=== PATIENT | female | born 1960 | race African-American/Black ===

== ENCOUNTER 2016-11-23 06:55 | Emergency (ER) | payer BC, MEDICAID ==
[2016-11-23 08:24] LABS: HEMATOCRIT 42.3 % (36.0-47.0); HEMOGLOBIN 14.3 g/dL (12.0-15.5); HGB HCT DIFFERENCE 0.6; MEAN CORPUSCULAR HGB CONC 33.7 g/dL (32.0-36.0); MEAN CORPUSCULAR VOLUME 95 fl (80-97); RED BLOOD COUNT 4.46 10^6/uL (3.72-5.28); RED CELL DISTRIBUTION WIDTH 17.6 % (11.5-14.0)
[2016-11-23 08:25] LABS: PROTHROMBIN TIME 15.1 SEC (11.4-15.4)
[2016-11-23 08:55] LABS: BAND NEUTROPHILS % (MANUAL) 3 % (3-5); BASOPHILS % (MANUAL) 0 % (0-2); EOSINOPHILS % (MANUAL) 0 % (0-6); LYMPHOCYTES % (MANUAL) 9 % (13-45); TOTAL CELLS COUNTED 100
[2016-11-23 08:58] LABS: ANISOCYTOSIS 1+
--- NOTE | 2016-11-23 09:23 | RADIOLOGY REPORT (SQ) ---
EXAM DESCRIPTION: CT HEAD WITHOUT COMPLETED DATE/TIME: 11/23/2016 9:01 am REASON FOR STUDY: altered altered level of consciousness COMPARISON: MRI brain 07/02/2015, CT brain 07/02/2015, 04/21/2014 TECHNIQUE: Axial images acquired through the brain without intravenous contrast. Images reviewed wi th bone, brain and subdural windows. Images stored on PACS. All CT scanners at this facility use dose modulation, iterative reconstruction, and/or weight based d osing when appropriate to reduce radiation dose to as low as reasonably achievable (ALARA). [facility]: Dose Right [facility]: CareDose [facility]: Dose Right [facility]: Teradose 4D [facility]: [employer] RADIATION DOSE: Up-to-date CT equipment and radiation dose reduction techniques were employed. CTDIv ol: 64.6 mGy. DLP: 1163 mGy-cm. mGy. LIMITATIONS: None. FINDINGS: VENTRICLES: Slightly more prominent than on CT exam 07/02/2015, likely due to resolved mass effect at the foramen of [place]ro region since therapy. CEREBRUM: Patient is post right frontal craniotomy. Deep to the craniotomy flap, a 4 by 4 cm operati ve cavity is present. Dorsal to the right frontal operative cavity, a residual mass is present in th e right caudate region, 3 x 2.7 cm in size. There is post radiation change, with low attenuation in t he bifrontal deep periventricular white matter, and dystrophic calcifications in the brain parenchyma . These findings were discussed with Dr. Garza. No CT evidence of acute intracranial hemorrhage, mass effect, or midline shift. CEREBELLUM: No masses. No hemorrhage. No alteration of density. No evidence for acute infarction. EXTRAAXIAL SPACES: No fluid collections. No masses. ORBITS AND GLOBE: No intra- or extraconal masses. Normal contour of globe without masses. CALVARIUM: Old right frontal craniotomy PARANASAL SINUSES: No fluid or mucosal thickening. SOFT TISSUES: No mass or hematoma. OTHER: No other significant finding. IMPRESSION: Post therapeutic changes in the right frontal lobe with an old encephalomalacia cavity, radiation change in the right and left frontal lobes, dystrophic brain parenchymal calcifications, an d residual right caudate mass. No acute changes. EVIDENCE OF ACUTE STROKE: NO. COMMENT: Quality ID # [id number]: Final reports with documentation of one or more dose reduction techniques (e.g., Automated exposure control, adjustment of the mA and/or kV according to patient size, use of iterative reconstruction technique) TECHNICAL DOCUMENTATION: JOB ID: [id number] [employer]- All Rights Reserved
--- NOTE | 2016-11-23 09:27 | RADIOLOGY REPORT (SQ) ---
EXAM DESCRIPTION: CHEST PA/LAT COMPLETED DATE/TIME: 11/23/2016 9:15 am REASON FOR STUDY: altereed COMPARISON: Chest films 07/02/2015, 07/04/2014, 04/21/2014 EXAM PARAMETERS: NUMBER OF VIEWS: two views TECHNIQUE: Digital Frontal and Lateral radiographic views of the chest acquired. RADIATION DOSE: NA LIMITATIONS: none FINDINGS: LUNGS AND PLEURA: Minimal lingular atelectasis. Lungs otherwise clear. No pleural effusi on or pneumothorax. MEDIASTINUM AND HILAR STRUCTURES: No masses or contour abnormalities. HEART AND VASCULAR STRUCTURES: Heart normal size. No evidence for failure. BONES: No acute findings. HARDWARE: Left-sided permanent central line tip in the superior vena cava. There is a loop in the ca theter just inferior to the left clavicle. OTHER: No other significant finding. IMPRESSION: Lingular atelectasis. TECHNICAL DOCUMENTATION: JOB ID: [id number] [employer]- All Rights Reserved
--- NOTE | 2016-11-23 09:49 | EKG REPORT ---
SEVERITY:- ABNORMAL ECG - SINUS TACHYCARDIA LEFT ANTERIOR FASCICULAR BLOCK RATE RELATED ST SEG DEPRESSION : Confirmed by: Pam Wilson 23-Nov-2016 09:48:49
[2016-11-23 09:54] LABS: BILIRUBIN,URINE SMALL (NEGATIVE); GLUCOSE, URINE NEGATIVE (NEGATIVE); KETONES,URINE 80 mg/dL (NEGATIVE); LEUKOCYTE ESTERASE,URINE NEGATIVE (NEGATIVE); NITRITE,URINE NEGATIVE (NEGATIVE); PROTEIN,URINE 100 mg/dL (NEGATIVE); URINE SPECIFIC GRAVITY 1.033
[2016-11-23 09:56] LABS: APPEARANCE,URINE CLOUDY
[2016-11-23 10:27] LABS: VENOUS BLOOD BASE EXCESS -0.7 mmol/L; VENOUS BLOOD HCO3 23.4 mmol/L (20-32); VENOUS BLOOD PCO2 36.9 mmHg (35-63); VENOUS BLOOD PH 7.42 (7.30-7.42)
[2016-11-23] MEDS ORDERED: LORAZEPAM INJ 2 MG/1 ML VIAL ONE ×2 (10:35→15:08)
[2016-11-23] MEDS: NORMAL SALINE 1000 ML 1,000 ML IV PRN ×2 (10:46→11:50)
[2016-11-23] MEDS ORDERED: LORAZEPAM INJ 2 MG/1 ML VIAL IV ONE ×3 (10:47→15:04)
[2016-11-23 11:02] LABS: ALANINE AMINOTRANSFERASE 37 U/L (9-52); ALBUMIN 2.9 g/dL (3.5-5.0); ALKALINE PHOSPHATASE 92 U/L (38-126); ANION GAP 13 (5-19); ASPARTATE AMINO TRANSFERASE 22 U/L (14-36); BILIRUBIN,DIRECT 0.6 mg/dL (0.0-0.4); BILIRUBIN,TOTAL 1.2 mg/dL (0.2-1.3); BLOOD UREA NITROGEN 10 mg/dL (7-20); CALCIUM 8.9 mg/dL (8.4-10.2); CARBON DIOXIDE 23 mmol/L (22-30); CHLORIDE 107 mmol/L (98-107); CREATININE RESULT 0.31 mg/dL (0.52-1.25); GLUCOSE 132 mg/dL (75-110); SODIUM 143.4 mmol/L (137-145); TOTAL PROTEIN 5.6 g/dL (6.3-8.2)
--- NOTE | 2016-11-23 11:18 | ER Document Report ---
ED General - General Chief Complaint: Altered Mental Status Stated Complaint: ALTERED MENTAL STATUS Time Seen by Provider: 11/23/16 07:00 Mode of Arrival: Medic Information source: Emergency Med Personnel, ON LICENSE OF [facility] Records Notes: 56-year-old female history of glioblastoma presents from care facility with altered mental status. Patient is noted to have seizure-like activity. Patient 's oncologist had told family that no further care will be possible after resections and radiation failed. patient family has been planning for hospice TRAVEL OUTSIDE OF THE [place] IN LAST 30 DAYS: No - HPI Onset: Last week - gradual somnulence over the past week Onset/Duration: Persistent Quality of pain: No pain Severity: Severe Pain Level: Denies Associated symptoms: Other Exacerbated by: Denies Relieved by: Denies Similar symptoms previously: Yes Recently seen / treated by doctor: Yes - Related Data Allergies/Adverse Reactions: codeine [Codeine] Allergy (Unknown, Verified 07/02/15 15:09) Penicillins Allergy (Unknown, Verified 07/02/15 15:09) Sulfa (Sulfonamide Antibiotics) Allergy (Verified 07/02/15 15:09) Past Medical History - Social History Smoking Status: Never Smoker Cigarette use (# per day): No Chew tobacco use (# tins/day): No Smoking Education Provided: No Family History: Arthritis, CAD, CVA, DM, Hyperlipidemia, Hypertension, Malignancy - Past Medical History Cardiac Medical History: Reports: Hx DVT - before 2009, Hx Hypercholesterolemia Pulmonary Medical History: Denies: Hx Tuberculosis Endocrine Medical History: Denies: Hx Diabetes Mellitus Type 2 GI Medical History: Reports: Hx Gastritis, Hx Gastroesophageal Reflux Disease. Denies: Hx Crohn's Disease, Hx Hiatal Hernia, Hx Irritable Bowel, Hx Liver Failure, Hx Ulcer Psychiatric Medical History: Reports: Hx Anxiety, Hx Depression Past Surgical History: Reports: Hx Abdominal Surgery - Exploratory lap, Hx Hysterectomy - Immunizations Immunizations up to date: Yes Hx Diphtheria, Pertussis, Tetanus Vaccination: Yes Review of Systems - Review of Systems Notes: PHYSICAL EXAMINATION: GENERAL: Ill-appearing somnolent female. HEAD: Postsurgical EYES: Pupils equal round and reactive to light, extraocular movements intact, conjunctiva are normal. ENT: Nares patent, oropharynx clear without exudates. Moist mucous membranes. NECK: Normal range of motion, supple without lymphadenopathy LUNGS: Breath sounds clear to auscultation bilaterally and equal. No wheezes rales or rhonchi. HEART: Tachycardic ABDOMEN: Soft, nontender, nondistended abdomen. No guarding, no rebound. No masses appreciated. Female : deferred Musculoskeletal: No movement of extremities NEUROLOGICAL: GCS 4 SKIN: Warm, Dry, normal turgor, no rashes or lesions noted. -: Yes ROS unobtainable due to patient's medical condition Physical Exam - Vital signs Vitals: Pulse Ox 92 11/23/16 07:09 Course - Re-evaluation Re-evalutation: 11/23/16 11:17 I spoke with the do not wish for any further intervention and understand that patient's prognosis is extremely poor Ativan was given for seizure-like activity 11/23/16 12:32 Patient continues to have seizure-like activity, I will give loading dose of Keppra. Hospice assistance has been requested from our social work 11/23/16 14:33 Hospice is here waiting to speak with family for placement. I believe this is appropriate, I have spent a very long large amount of time with multiple family members - Vital Signs Vital signs: Temp Pulse Resp BP Pulse Ox 99.3 F 24 H 146/116 H 96 11/23/16 07:11 11/23/16 07:11 11/23/16 07:11 11/23/16 07:11 - Laboratory Result Diagrams: 11/23/16 07:48 11/23/16 09:57 Laboratory results interpreted by me: 11/23/16 11/23/16 11/23/16 07:48 07:48 07:49 WBC 12.0 H RDW 17.6 H Seg Neuts % (Manual) 83 H Lymphocytes % (Manual) 9 L Abs Neuts (Manual) 10.3 H Potassium Creatinine Glucose POC Glucose Lactic Acid 2.9 H Direct Bilirubin Total Protein Albumin Urine Protein 100 H Urine Ketones 80 H Urine Blood LARGE H Urine Bilirubin SMALL H Urine Urobilinogen 4.0 H 11/23/16 11/23/16 08:27 09:57 WBC RDW Seg Neuts % (Manual) Lymphocytes % (Manual) Abs Neuts (Manual) Potassium 3.0 L* Creatinine 0.31 L Glucose 132 H POC Glucose 145 H Lactic Acid Direct Bilirubin 0.6 H Total Protein 5.6 L Albumin 2.9 L Urine Protein Urine Ketones Urine Blood Urine Bilirubin Urine Urobilinogen Discharge - Discharge Clinical Impression: Glioblastoma, Seizure-like activity, Hospice care Condition: Critical Disposition: HOSPICE CENTER Referrals: YSABEL GRAY MD [Primary Care Provider] - Follow up as needed
[2016-11-23] MEDS ORDERED: LEVETIRACETAM 1500 MG/NACL-ISO 1,500 MG/100 ML RTUPB IV ONE (12:32)
[2016-11-23] MEDS ORDERED: CEFTRIAXONE 1 GM/D5W RTU 1 GM/50 ML RTUPB IV ONE (15:22)
[2016-11-23 15:26] VITALS: BP 136/105
== END 2016-11-23 18:30 | disposition hospice, inpatient (51) ==
LOC: ER 06:55
DX: C71.9 Malignant neoplasm of brain, unspecified (principal); R56.9 Unspecified convulsions; N30.00 Acute cystitis without hematuria; R41.82 Altered mental status, unspecified; E78.00 Pure hypercholesterolemia, unspecified; Z88.6 Allergy status to analgesic agent; Z88.0 Allergy status to penicillin; Z88.2 Allergy status to sulfonamides; Z86.718 Personal history of other venous thrombosis and embolism; Z90.710 Acquired absence of both cervix and uterus
CPT/HCPCS: 93005; 36591; 96376; 99285; 96361; 51702; 96375; 96365; 96367; 36415; 87040; 87086; 82962; 85025; 85610; 80053; 81001; 82803; 83605; 71020; 70450; 93010; J2060; J7030; J0696; J1953